=== PATIENT | male | born 1980 | race Caucasian/White ===

== ENCOUNTER 2016-10-19 18:55 | Emergency (ER) | payer SELFPAY ==
[2016-10-19 19:26] VITALS: BP 143/93; PULSE 84; RESP 16; TEMP 98.4; O2SAT 100
--- NOTE | 2016-10-19 19:56 | C.PDOC ---
History Of Present Illness 36 year old male who presents to the ER with a complaint of intermittent pain to the lower back for 1 week that worsens with movement. Patient states the pain has worsened more over the past 3 days; denies recent trauma, weakness, numbness, dysuria, hematuria, or incontinence. Time Seen by Provider: 10/19/16 19:45 Chief Complaint (Nursing): Back Pain History Per: Patient History/Exam Limitations: no limitations Onset/Duration Of Symptoms: Days (7) Current Symptoms Are (Timing): Still Present Quality Of Discomfort: Unable To Describe Previous Symptoms: None Associated Symptoms: None. denies: Incontinence, New Weakness, New Numbness Exacerbating Factor(s): Turning, Movement Recent travel outside of the [place]: No Past Medical History Reviewed: Historical Data, Nursing Documentation, Vital Signs Vital Signs: Last Vital Signs Temp 98.4 F 10/19/16 19:23 Pulse 84 10/19/16 19:23 Resp 16 10/19/16 19:23 BP 143/93 H 10/19/16 19:23 Pulse Ox 100 10/19/16 20:47 - Medical History PMH: No Chronic Diseases Surgical History: No Surg Hx Family History: States: Unknown Family Hx - Social History Hx Tobacco Use: No Hx Alcohol Use: Yes Hx Substance Use: No - Immunization History Hx Tetanus Toxoid Vaccination: Yes Hx Influenza Vaccination: Yes Hx Pneumococcal Vaccination: Yes Review Of Systems Genitourinary: Negative for: Dysuria, Incontinence, Hematuria Musculoskeletal: Positive for: Back Pain Neurological: Negative for: Weakness, Numbness Physical Exam - Physical Exam Appears: Non-toxic Skin: Normal Color, Warm, Dry Head: Atraumatic, Normacephalic Oral Mucosa: Moist Back: No Vertebral Tenderness, Paraspinal Tenderness (Lumbar), Straight Leg Raising (Negative) Extremity: Normal ROM (x4), No Deformity, No Swelling Neurological/Psych: Oriented x3, Normal Speech, Normal Cognition Gait: Steady ED Course And Treatment O2 Sat by Pulse Oximetry: 100 (Room air) Pulse Ox Interpretation: Normal Progress Note: On reassessment, patient is resting comfortably, with improvement of back pain. Patient remains afebrile, with no bony tenderness, extremity numbness or weakness, or abdominal pain. Patient is ambulatory in the emergency department with no signs of discomfort. Patient was advised to follow up with PMD in 1-2 days. Disposition - Disposition Referrals: [facility] [Outside] Disposition: HOME/ ROUTINE Disposition Time: 19:53 Condition: STABLE Additional Instructions: Take medications as prescribed Follow up with PMD Return to ER if worse Prescriptions: Cyclobenzaprine [Cyclobenzaprine HCl] 10 mg PO HS #10 tab Ibuprofen [Motrin] 600 mg PO Q6H #30 tab Instructions: Back Pain (ED) - Clinical Impression Clinical Impression: Low back pain - Scribe Statement The provider has reviewed the documentation as recorded by the Scribcalista Espinal All medical record entries made by the Tanishaibcalista were at my direction and personally dictated by me. I have reviewed the chart and agree that the record accurately reflects my personal performance of the history, physical exam, medical decision making, and the department course for this patient. I have also personally directed, reviewed, and agree with the discharge instructions and disposition.
== END 2016-10-19 20:26 | disposition home or self-care (01) ==
LOC: SUPCPDRO 18:55 → C.ER 18:55
DX: M54.5 Low back pain (principal)

== ENCOUNTER 2017-10-30 12:52 | Emergency (ER) | payer OTHER ==
[2017-10-30 13:02] VITALS: RESP 18; TEMP 98.6; O2SAT 100
[2017-10-30 13:52] LABS: BASO # 0.1 K/uL (0.0-0.2); BASO % 1.4 % (0.0-2.0); EOS # 0.1 K/uL (0.0-0.7); EOS % 2.1 % (0.0-4.0); HEMOGLOBIN 14.5 g/dL (12.0-18.0); LYMPH # 1.7 K/uL (1.0-4.3); LYMPH % 38.9 % (20.0-40.0); MEAN CELL VOLUME 86.2 fL (80.0-94.0); MEAN CORPUSCULAR HGB CONC 33.7 g/dL (33.0-37.0); MEAN PLATELET VOLUME 8.6 fL (7.2-11.7); MONO # 0.3 K/uL (0.0-0.8); MONO % 7.4 % (0.0-10.0); NEUT # 2.2 K/uL (1.8-7.0); NEUT % 50.2 % (50.0-75.0); NRBC % 0.1 % (0.0-2.0); RBC 5.01 Mil/uL (4.40-5.90); RED CELL DISTRIBUTION WIDTH 14.1 % (11.5-14.5); WHITE BLOOD COUNT 4.3 K/uL (4.8-10.8)
--- NOTE | 2017-10-30 13:56 | C.PDOC ---
History Of Present Illness 37 year old male presents to the ED complaining of pain to the right iliac crest ongoing for 2 days. Patient states pain is constant and nonradiating. Pain is worse when he is sitting down on the floor. He is able to ambulate normally. He denies any trauma/injuries. He denies taking any medication to relieve pain. He denies any numbness, weakness, tingling, abdominal pain, incontinence, n/v/d, or any other symptoms. He also complains of chronic left flank pain ongoing intermittently for years. He reports he went to PMD for evalutation of chronic left flank pain but still does not know what caused it. Time Seen by Provider: 10/30/17 13:22 Chief Complaint (Nursing): Abdominal Pain History Per: Patient History/Exam Limitations: no limitations Onset/Duration Of Symptoms: Days Current Symptoms Are (Timing): Still Present Associated Symptoms: denies: Fever, Nausea, Vomiting Past Medical History Reviewed: Historical Data, Nursing Documentation, Vital Signs Vital Signs: Last Vital Signs Temp 98.6 F 10/30/17 13:00 Pulse 100 H 10/30/17 13:00 Resp 18 10/30/17 13:00 BP 142/80 10/30/17 13:00 Pulse Ox 100 10/30/17 14:01 - Medical History Other PMH: chronic left flank pain Surgical History: No Surg Hx Family History: States: No Known Family Hx - Social History Hx Tobacco Use: No Hx Alcohol Use: Yes Hx Substance Use: No - Immunization History Hx Tetanus Toxoid Vaccination: Yes Hx Influenza Vaccination: Yes Hx Pneumococcal Vaccination: Yes Review Of Systems Constitutional: Negative for: Fever Gastrointestinal: Negative for: Nausea, Vomiting, Abdominal Pain, Diarrhea Musculoskeletal: Positive for: Other (pain to the right iliac crest and pain to left flank ) Neurological: Negative for: Weakness, Numbness Physical Exam - Physical Exam Appears: Non-toxic, No Acute Distress Skin: Warm, Dry Head: Atraumatic, Normacephalic Eye(s): bilateral: Normal Inspection Nose: Normal Oral Mucosa: Moist Neck: Supple Chest: Symmetrical Cardiovascular: Rhythm Regular, No Murmur Respiratory: Normal Breath Sounds, No Rales, No Rhonchi, No Wheezing Gastrointestinal/Abdominal: Soft, No Tenderness, No Guarding, No Rebound Back: No CVA Tenderness, No Vertebral Tenderness, No Paraspinal Tenderness, No Other (Bone tenderness ) Extremity: Normal ROM Extremity: Bilateral: Atraumatic, Normal Color And Temperature, Normal ROM Neurological/Psych: Oriented x3, Normal Speech, Normal Motor, Normal Sensation Gait: Steady ED Course And Treatment - Laboratory Results Result Diagrams: 10/30/17 13:45 10/30/17 13:45 Lab Interpretation: Normal O2 Sat by Pulse Oximetry: 100 (RA) Pulse Ox Interpretation: Normal - Other Rad Right hip and pelvis X-Ray: Interpreted by Me Interpretation: No evidence of fracture or dislocation. Normal soft tissues. Reevaluation Time: 15:50 Reassessment Condition: Unchanged Medical Decision Making Medical Decision Making: Impression: Pain to right iliac crest Plan - XR Right hip - UA -CMP Disposition - Disposition Referrals: Pepper Nguyen [Medical Doctor] - Disposition: HOME/ ROUTINE Disposition Time: 15:51 Condition: STABLE Prescriptions: Naproxen [Naprosyn] 500 mg PO BID PRN #20 tablet PRN Reason: Pain, Severe (8-10) Instructions: Hip Pain Forms: [employer] [facility] (Sami) - Clinical Impression Clinical Impression: Hip pain, right - Scribe Statement The provider has reviewed the documentation as recorded by the Scribe Shantal Mcbride All medical record entries made by the Tanishaibcalista were at my direction and personally dictated by me. I have reviewed the chart and agree that the record accurately reflects my personal performance of the history, physical exam, medical decision making, and the department course for this patient. I have also personally directed, reviewed, and agree with the discharge instructions and disposition.
[2017-10-30 14:07] LABS: ALB/GLOB RATIO 1.4 (1.0-2.1); ALBUMIN 4.2 g/dL (3.5-5.0); ALT/SGPT 32 U/L (21-72); AST/SGOT 30 U/L (17-59); BLOOD UREA NITROGEN 14 mg/dL (9-20); GFR AFRICAN-AMERICAN > 60; GFR NON-AFRICAN AMERICAN > 60
[2017-10-30 15:01] LABS: SQUAMOUS EPITHIAL < 1 /hpf (0-5); URINE BILIRUBIN NEGATIVE (NEGATIVE); URINE BLOOD 1+ (NEGATIVE); URINE CLARITY Clear (Clear); URINE COLOR Yellow (YELLOW); URINE GLUCOSE (UA) NORMAL (Normal); URINE LEUKOCYTE ESTERASE NEG Leu/uL (Negative); URINE PROTEIN NEGATIVE (NEGATIVE); URINE UROBILINOGEN NORMAL mg/dL (0.2-1.0)
[2017-10-30 16:12] VITALS: BP 138/76; PULSE 88
--- NOTE | 2017-10-30 18:11 | RAD ---
Date of service: 10/30/2017 PROCEDURE: Right hip with pelvis radiographs HISTORY: pain in rt iliac crest COMPARISON: None available. TECHNIQUE: Frontal views of the pelvis been submitted with frog leg lateral view right hip joint. FINDINGS: No acute fracture, dislocation or suspicious lytic or blastic changes seen related to the right hip joint. Left hip joint appears symmetrical. Pelvic ring is intact including pubic symphysis. The bilateral sacroiliac joints appear unremarkable and symmetric. Sacral arcades are intact as well as the bilateral iliac bones. IMPRESSION: No acute fracture or dislocation right hip with pelvic ring appearing intact diffusely.
== END 2017-10-30 16:29 | disposition home or self-care (01) ==
LOC: C.ER 12:52
DX: M25.551 Pain in right hip (principal)

== ENCOUNTER 2017-12-20 05:55 | Emergency (ER) | payer OTHER ==
[2017-12-20 06:08] VITALS: BP 121/78; PULSE 134; RESP 22; TEMP 98; O2SAT 97
--- NOTE | 2017-12-20 06:11 | C.PDOC ---
History Of Present Illness <Ashlee Noe - Last Filed: 12/20/17 06:21> <Carrie Christensensara - Last Filed: 12/20/17 06:49> 37 year old male presents to the ED for evaluation of left-sided rib pain which began after he tripped, fell and hit the left side of his chest on the curb earlier today. Patient denies head injury, loss of consciousness, cough, shortness of breath, nausea, and vomiting. (HasmukhEddieAshlee L) History Per: Patient History/Exam Limitations: no limitations Onset/Duration Of Symptoms: Hrs Current Symptoms Are (Timing): Still Present Additional History Per: Patient <Ashlee Noe - Last Filed: 12/20/17 06:21> <FerminAnna - Last Filed: 12/20/17 06:49> Time Seen by Provider: 12/20/17 06:08 Chief Complaint (Nursing): Trauma Past Medical History Reviewed: Historical Data, Nursing Documentation, Vital Signs - Medical History PMH: No Chronic Diseases Surgical History: No Surg Hx Family History: States: Unknown Family Hx - Social History Hx Tobacco Use: No Hx Alcohol Use: Yes Hx Substance Use: No - Immunization History Hx Tetanus Toxoid Vaccination: Yes Hx Influenza Vaccination: Yes Hx Pneumococcal Vaccination: Yes <Ashlee Noe - Last Filed: 12/20/17 06:21> Vital Signs: Last Vital Signs Temp 98 F 12/20/17 06:02 Pulse 134 H 12/20/17 06:02 Resp 22 12/20/17 06:02 BP 121/78 12/20/17 06:02 Pulse Ox 97 12/20/17 06:21 Review Of Systems Gastrointestinal: Negative for: Nausea, Vomiting Musculoskeletal: Positive for: Other (left-sided rib pain ) Neurological: Negative for: Other (head injury, loss of consciousness ) <Ashlee Noe - Last Filed: 12/20/17 06:21> Physical Exam - Physical Exam Appears: Non-toxic, No Acute Distress Skin: Normal Color, Warm, Dry Head: Normacephalic Eye(s): bilateral: Normal Inspection Ear(s): Bilateral: Normal Nose: No Epistaxis, Other (superficial abrasion to nasal bridge, no active bleeding ) Oral Mucosa: Moist Neck: Supple Chest: Symmetrical, No Deformity, Tenderness (to left lower anterior chest wall ), No Ecchymosis Cardiovascular: Rhythm Regular, No Murmur Respiratory: Normal Breath Sounds, No Rales, No Rhonchi, No Wheezing Extremity: Normal ROM, Capillary Refill (less than 2 seconds ) Neurological/Psych: Oriented x3, Normal Speech, Normal Cognition Gait: Steady <HasmukhAshlee L - Last Filed: 12/20/17 06:21> ED Course And Treatment O2 Sat by Pulse Oximetry: 97 (on RA) Pulse Ox Interpretation: Normal <HasmukhAshlee L - Last Filed: 12/20/17 06:21> Pulse Ox Interpretation: Normal - Radiology CXR: Interpreted by Me, Viewed By Me CXR Interpretation: No: Infiltrates, Fracture, Pnemothorax - Other Rad ribs X-Ray: Interpreted by Me, Viewed By Me Interpretation: no obvious fx or dislocation Reevaluation Time: 06:46 Reassessment Condition: Improved <Anna Christensen - Last Filed: 12/20/17 06:49> Medical Decision Making <Ashlee Noe - Last Filed: 12/20/17 06:21> <Anna Christensen - Last Filed: 12/20/17 06:49> Medical Decision Making: Impression: 37 year old male with left-sided rib pain after fall Plan: * left ribs and chest XR * Motrin PO * Tylenol PO * reassess and disposition Progress: Left ribs and chest XR ordered. Motrin PO and Tylenol PO given. (Ashlee Noe) Upon provider reevaluation patient is feeling better, is medically stable, and requires no further treatment in the ED at this time. Patient will be discharged home with Rx for naproxen and albuterol . Counseling was provided and all questions were answered regarding diagnosis and need for follow up with the referred clinic. There is agreement to discharge plan. Return if symptoms persist or worsen. (Anna Christensen) Disposition <Ashlee Noe - Last Filed: 12/20/17 06:21> Counseled Patient/Family Regarding: Studies Performed, Diagnosis, Need For Followup, Rx Given - Disposition Disposition Time: 06:46 <Anna Christensen - Last Filed: 12/20/17 06:49> - Disposition Referrals: [facility] [Outside] [facility] [Outside] Disposition: HOME/ ROUTINE Condition: FAIR Additional Instructions: Please return if symptoms recur Prescriptions: Albuterol HFA [Ventolin HFA 90 mcg/actuation (8 g)] 2 puff IH [id number] #1 puff Naproxen [Naprosyn] 1 tab PO BID PRN #25 tab PRN Reason: Pain Instructions: Bruised Rib (DC) Forms: [employer] (Moroccan) - Clinical Impression Clinical Impression: Contusion of rib on left side - PA / SERVICE CENTER MANAGER / Resident Statement MD/DO has reviewed & agrees with the documentation as recorded. - Scribe Statement The provider has reviewed the documentation as recorded by the Scribe (Zakiya Mack) <Ashlee Noe - Last Filed: 12/20/17 06:21> <Anna Christensen - Last Filed: 12/20/17 06:49> - Scribe Statement All medical record entries made by the Scribe were at my direction and personally dictated by me. I have reviewed the chart and agree that the record accurately reflects my personal performance of the history, physical exam, medical decision making, and the department course for this patient. I have also personally directed, reviewed, and agree with the discharge instructions and disposition. (Ashlee Noe)
--- NOTE | 2017-12-20 09:23 | RAD ---
Date of service: 12/20/2017 PROCEDURE: Radiographs of the Chest and Left Ribs. HISTORY: pain s.p fall COMPARISON: None available. TECHNIQUE: Frontal radiograph of the chest and multiple oblique radiographs of the left ribs were obtained. FINDINGS: LEFT RIBS: No fracture or focal lesion visualized. LUNGS: Clear. PLEURA: No pneumothorax or pleural fluid. CARDIOVASCULAR: Normal sized heart. No pulmonary vascular congestion. OTHER FINDINGS: None. IMPRESSION: Unremarkable radiographs of the chest and left ribs. No left rib fracture.
== END 2017-12-20 07:03 | disposition home or self-care (01) ==
LOC: C.ER 05:55
DX: S20.212A Contusion of left front wall of thorax, initial encounter (principal); W01.0XXA Fall on same level from slipping, tripping and stumbling without subsequent striking against object, initial encounter; Y92.480 Sidewalk as the place of occurrence of the external cause

== ENCOUNTER 2018-01-19 11:55 | Emergency (ER) | payer OTHER ==
--- NOTE | 2018-01-19 13:11 | RAD ---
Date of service: 01/19/2018 PROCEDURE: Radiographs of the Chest and Left Ribs. HISTORY: r/o fx COMPARISON: None available. TECHNIQUE: Frontal radiograph of the chest and multiple oblique radiographs of the left ribs were obtained. FINDINGS: LEFT RIBS: No fracture or focal lesion visualized. LUNGS: Clear. PLEURA: No pneumothorax or pleural fluid. CARDIOVASCULAR: Normal sized heart. No pulmonary vascular congestion. No aortic atherosclerotic calcification present OTHER FINDINGS: None. IMPRESSION: Unremarkable radiographs of the chest and left ribs. No left rib fracture.
[2018-01-19 13:45] VITALS: BP 135/94; PULSE 81; RESP 17; TEMP 98; O2SAT 96
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
--- NOTE | 2018-01-24 07:59 | CARD ---
APPROVED REPORT Date of service: 01/19/2018 EKG Measurement Heart [id number] <Conclusion> Normal sinus rhythm Possible Left atrial enlargement Borderline ECG
== END 2018-01-19 13:44 | disposition home or self-care (01) ==
LOC: C.ER 11:55
DX: S20.212D Contusion of left front wall of thorax, subsequent encounter (principal); V89.2XXD Person injured in unspecified motor-vehicle accident, traffic, subsequent encounter